=== PATIENT | male | born 1995 | race African-American/Black ===

== ENCOUNTER 2016-12-12 15:39 | Emergency (ER) | payer OTHER ==
--- NOTE | ~2016-12-12 | CR63 ---
[facility] A Service of [facility] & [facility] RADIOLOGY TEXT RESULTS PATIENT: RANDAL CROFT LOCATION: [facility] : [birth year] UNIT #: [id number] AGE: [address]: Charlotte Mota APRN SEX: M ORDER DR: [id number] [facility] [address] [place], [place] [address] [id number] E MR#: [id number] Acc #: [id number] NAME: RANDAL CROFT : 1995 SEX: M STUDY DATE/TIME: 12/12/2016 14:34 UNIT: [facility] ROOM: STUDY DESCRIPTION: CR Chest 2 View Attending Physician: Charlotte Mota A.P.R.N. Ordering Physician: Ed Laz Austin M.D. Primary Care Physician: No Primary Care Physician MEDICAL IMAGING REPORT This report is preliminary unless electronic signature is present EXAM 2 views chest, 12/12/2016 HISTORY Cough and wheezing. 1 week duration. Left ear pain. TECHNIQUE PA and lateral radiographs of the chest are presented. COMPARISON STUDIES No comparisons. FINDINGS Bony structures are unremarkable. Heart and mediastinum normal in size and contour. The lungs are well inflated. There is some linear scarring suggested at the left lung apex. There is no indication of acute infectious or inflammatory disease. No pleural effusion or pneumothorax. No suspicious nodule. Dictated by... Steven Medellin M.D. THIS IS AN ELECTRONICALLY VERIFIED REPORT Steven Medellin M.D. at 12/13/2016 1:54 PM NORBERTO/flores TD: 12/12/2016 17:14 JOB #: [id number] MEDICAL IMAGING REPORT Page 1 of 1 COPY
[2016-12-12 15:07] LABS: INFLUENZA A NEG (NEG); INFLUENZA B NEG (NEG)
== END 2016-12-12 15:59 | disposition home or self-care (01) ==
LOC: CED 15:39
PROVIDERS: Nurse Practitioner
DX: J20.9 Acute bronchitis, unspecified (principal); H66.002 Acute suppurative otitis media without spontaneous rupture of ear drum, left ear
CPT/HCPCS: 71020; 87804; 94640; 99283